=== PATIENT | male | born 1955 | race African-American/Black ===

== ENCOUNTER 2016-07-07 06:21 | Day surgery (SDC) | payer OTHER ==
--- NOTE | ~2016-07-07 | EGD ---
EGD REPORT [facility] [address] [place] [id number] NAME: TEJ ROBERSON : [birth year] [place] [facility] [place] [id number] AGE: 61 ADM/REG DATE : 07/07/16 MR#: [id number] REPORT SERV DATE: 07/07/16 DICTATED BY: MYNOR WHITE DATE: 07/07/16 REPORT STATUS : Draft TRANSCRIBED BY: [employer] DATE: 07/07/16 [facility] Patient Name: Tej Roberson Date of : 1955 Attending MD: MYNOR WHITE MD Procedure Date No Time: 07/07/2016 Procedure: Colonoscopy Indications: Screening for colorectal malignant neoplasm, This is the patient's first colonoscopy Referring MD: JOHANN DONALDSON Medicines: See the Anesthesia note for documentation of the administered medications Complications: No immediate complications. Procedure: Pre-Anesthesia Assessment: - ASA Grade Assessment: III - A patient with severe systemic disease. After I obtained informed consent, the scope was passed under direct vision. Throughout the procedure, the patient's blood pressure, pulse, and oxygen saturations were monitored continuously. The [id number] was introduced through the anus and advanced to the cecum, identified by appendiceal orifice and ileocecal valve. The colonoscopy was performed without difficulty. The patient tolerated the procedure well. The quality of the bowel preparation was adequate. Findings: The perianal and digital rectal examinations were normal. Internal hemorrhoids were found during retroflexion and were medium-sized. Impression: - Internal hemorrhoids. Recommendation: - Patient has a contact number available for emergencies. The signs and symptoms of potential delayed complications were discussed with the patient. Return to normal activities tomorrow. Written discharge instructions were provided to the patient. - Regular diet. - Continue present medications. - Repeat colonoscopy in 10 years for screening purposes. - Repeat colonoscopy in 10 years. IF develop symptoms like bleeding or diarrhea, or Family history of colon cancer or polyps before age 60, you could require sooner colonoscopy EGD REPORT [facility] [address] [id number] NAME: TEJ ROBERSON : [birth year] STATUS : REG [facility]#: [id number] AGE: 61 ADM/REG DATE : 07/07/16 MR#: [id number] REPORT SERV DATE: 07/07/16 DICTATED BY: MYNOR WHITE DATE: 07/07/16 REPORT STATUS : Draft TRANSCRIBED BY: [employer] DATE: 07/07/16 Procedure Code(s): --- Professional --- 91971, Colonoscopy, flexible, proximal to splenic flexure; diagnostic, with or without collection of specimen(s) by brushing or washing, with or without colon decompression (separate procedure) Diagnosis Code(s): --- Professional --- K64.8, Other hemorrhoids Z12.11, Encounter for screening for malignant neoplasm of colon CPT copyright 2013 [employer]. All rights reserved. The codes documented in this report are preliminary and upon sign erector review may be revised to meet current compliance requirements. Mynor White MD MYNOR WHITE MD 07/07/2016 8:39 AM This report has been signed electronically. Number of Addenda: 0 Note Initiated On: 07/07/2016 8:20 AM Scope Withdrawal Time 0 hours 7 minutes 23 seconds [id number] [id number]
[~2016-07-07 06:21] MED LIST: AMARYL2 PO; AVINZA30 PO; COMBIGAN0.2 MG/0.5 OP; EQUATE SLEEP AID; FOLIC PO; FORTAMET500 MG PO; L40 PO; LEVEMFLXPN SC; MELATONIN300 MCG PO; METHOC750B PO; MSCONTIN PO; MTX2.5 PO; MULTIPLE VIT PO; NAP500 PO; NEUR300 PO; NORCO1 TA2 PO; PERCOCET1 TA4 PO; PREDFORTE OPH; PRILO PO; PROTONIX PO; TRAVATAN OPH; TYLENOL 8 HR650 MG PO; ZANAFLEX 4 MG TA4 MG PO; ZANAFLEX2 MG PO; ZOCOR40 PO
== END 2016-07-07 23:59 | disposition home or self-care (01) ==
LOC: DMU 06:21
PROVIDERS: Internal Medicine Gastroenterology
PROC: 0DJD8ZZ Inspection of Lower Intestinal Tract, Via Natural or Artificial Opening Endoscopic (ICD-10-PCS; principal; 2016-07-07 09:00)
DX: Z12.11 Encounter for screening for malignant neoplasm of colon (principal); K64.8 Other hemorrhoids; F17.210 Nicotine dependence, cigarettes, uncomplicated; I10 Essential (primary) hypertension; E78.00 Pure hypercholesterolemia, unspecified; G47.33 Obstructive sleep apnea (adult) (pediatric); I25.2 Old myocardial infarction; F32.9 Major depressive disorder, single episode, unspecified; K21.9 Gastro-esophageal reflux disease without esophagitis; E11.42 Type 2 diabetes mellitus with diabetic polyneuropathy; G89.29 Other chronic pain; M19.90 Unspecified osteoarthritis, unspecified site; M54.9 Dorsalgia, unspecified; Z96.643 Presence of artificial hip joint, bilateral; Z88.8 Allergy status to other drugs, medicaments and biological substances; Z79.899 Other long term (current) drug therapy; Z79.4 Long term (current) use of insulin; Z79.84 Long term (current) use of oral hypoglycemic drugs; Z79.891 Long term (current) use of opiate analgesic; Z98.1 Arthrodesis status; Z87.442 Personal history of urinary calculi; Z98.41 Cataract extraction status, right eye; Z98.42 Cataract extraction status, left eye; Z96.1 Presence of intraocular lens; Z98.890 Other specified postprocedural states
CPT/HCPCS: 82962